=== PATIENT | female | born 1985 ===

== ENCOUNTER 2024-02-04 17:11 | Inpatient (IN) | payer MEDICAID, SELFPAY ==
[2024-02-04 17:46] VITALS: BMI 23.7
[2024-02-04 17:47] VITALS: BP 144/92; PULSE 80; RESP 14; TEMP 36.7; O2SAT 98
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
[2024-02-04 20:04] VITALS: BP 136/78; PULSE 84; RESP 16; TEMP 36.8; O2SAT 98
--- NOTE | 2024-02-04 20:34 | HO.PM.IMCN ---
History of Present Illness Data of Consult Service Date: 02/04/24 Primary Care Provider: Unknown Physician HPI Reason for consult: Admision H&P Pt is a 38-year-old female with a PMH significant for?ADHD, psoriasis, and depression with SI who is admitted to [facility] psychiatry unit for increasing depression with suicide attempt at overdosing on home medications. Patient apparently had taken 30 tablets of 50 mg hydroxyzine, 40-50 tablets of 25 mg Unisom, and a few mouthfuls of liquid Mucinex. Patient apparently had been triggered after an argument with her boss the day prior. Patient was treated at [facility] for possible overdose where she was monitored and electrolytes corrected. Medical consult for admission H&P. ?Patient states has not had psoriasis outbreak in many years, not currently. on any medications last saw PCP over 5 years ago before the pandemic. Currently complains of a ?tiny? headache, but otherwise has no acute medical complaints. No fever, chills, nausea, vomiting. Denies chest pain/pressure or palpitations. No shortness a breath or difficulty breathing. Denies acute vision changes. Last labs from [facility] reviewed, grossly unremarkable. Vital signs stable. Review of Systems Review of Systems: Slight headache Patient otherwise has no acute medical complaints at this time [facility] Social History Household Members: Friend(s) Housing: House Do you presently have visiting nurse or other home services: No Patient Tobacco Use Status: Current someday Tobacco user Tobacco use type: Cigarette e-Cigarette/Vaping Use: Currently Using Substance Use Type: Marijuana Meds Allergies Allergy/AdvReac Type Severity Reaction Status Date / Time No Known Drug Allergies Allergy Unknown Verified 02/04/24 19:26 Active Medications: Current Medications Acetaminophen (Acetaminophen 325 Mg Tablet) 650 mg PO Q6H PRN PRN Reason: Headache/Pain Mild Scale (1-3) Al Hydroxide/Mg Hydroxide (Magnesium Hydrox/Alum Hydrox 30 Ml Oral.Susp) 30 ml PO Q6H PRN PRN Reason: Heartburn/Nausea Diphenhydramine HCl (Diphenhydramine Hcl 25 Mg Capsule) 25 mg PO BEDTIME PRN PRN Reason: Sleep Hydroxyzine HCl (Hydroxyzine Hcl 25 Mg Tablet) 25 mg PO Q6H PRN PRN Reason: Anxiety Hydroxyzine HCl (Hydroxyzine Hcl 50 Mg Tablet) 50 mg PO BID PRN PRN Reason: Anxiety Magnesium Hydroxide (Milk Of Magnesia 30 Ml Oral.Susp) 30 ml PO DAILY PRN PRN Reason: Constipation Nicotine (Nicotine 21 Mg Patch.Td24) 21 mg TRANSDERMA DAILY PRN PRN Reason: smoking cessation Nicotine Polacrilex (Nicotine Polacrilex 2 Mg Gum) 4 mg BUCCAL Q2H PRN PRN Reason: Nicotine Cravings Olanzapine (Olanzapine 2.5 Mg Tablet) 2.5 mg PO TID PRN PRN Reason: agitation Sertraline HCl (Sertraline Hcl 50 Mg Tablet) 50 mg PO DAILY GRICELDA Trazodone HCl (Trazodone Hcl 50 Mg Tablet) 50 mg PO BEDTIME MRX1 PRN PRN Reason: Insomnia Home Medications ?Medication ?Instructions ?Recorded ?Confirmed ?Last Taken ?Type dextroamphetamine-amphetamine 10 10 mg PO BID PRN focus 02/04/24 02/04/24 02/01/24 History mg tablet (Adderall) diphenhydramine HCl 25 mg capsule 25 mg PO BEDTIME PRN Sleep 02/04/24 02/04/24 02/03/24 History (Unisom SleepMinis) hydroxyzine HCl 50 mg tablet 50 mg PO BID PRN Anxiety 02/04/24 02/04/24 02/03/24 History sertraline 50 mg tablet (Zoloft) 50 mg PO DAILY 02/04/24 02/04/24 02/03/24 History Physical Exam Vital Signs and Narrative: Vital Signs: Last Vital Signs Temp 98.2 F 02/04/24 20:04 Pulse 84 02/04/24 20:04 Resp 16 02/04/24 20:04 BP 136/78 02/04/24 20:04 Pulse Ox 98 02/04/24 20:04 O2 Del Method Room Air 02/04/24 20:04 BMI result Body Mass Index 23.7 General: AOx3, no acute distress Resp: CTA bilaterally CVS: S1, S2, RRR GI: +BS, NT, no distention Skin: Warm, dry Neuro: Cranial nerves II-XII grossly intact bilaterally. Motor grossly intact bilaterally Extremities: No edema Psych: Appropriate affect Assessment and Plan (1) Medical clearance for psychiatric admission: Status: Acute Plan Pt is a 38-year-old female with a PMH significant for?ADHD, psoriasis, and depression with SI who is admitted to psychiatry unit for increasing depression with suicide attempt at overdosing on home medications. Patient apparently had taken 30 tablets of 50 mg hydroxyzine, 40-50 tablets of 25 mg Unisom, and a few mouthfuls of liquid Mucinex. Patient apparently had been triggered after an argument with her boss the day prior. Patient was treated at [facility] for possible overdose where she was monitored and electrolytes corrected. Medical consult for admission H&P. Mood disorder Plan as per Psychiatry ADHD Continue Adderall Psoriasis Reports last outbreak many years ago Not on any home medications Patient otherwise has no known acute medical complaints or chronic medical conditions. Will sign off for now. Please re-consult if any acute issue or concern arises. Thank you for allowing us to participate in the care of this patient.
[2024-02-04] MEDS: hydrOXYzine HCL 50 MG TABLET PO (21:45)
[2024-02-04] MEDS: traZODone HCL 50 MG TABLET PO (21:45)
[2024-02-05 08:29] VITALS: BP 119/80; PULSE 89; RESP 18; TEMP 36.4; O2SAT 98
[2024-02-05] MEDS: Sertraline HCL 50 MG TABLET PO (08:44)
[2024-02-05 08:55] LABS: Estimated Average Glucose 114 mg/dL; Hemoglobin A1c % 5.6 % (<6.0)
[2024-02-05] MEDS: hydrOXYzine HCL 50 MG TABLET PO (09:05)
[2024-02-05] MEDS: OLANZapine 2.5 MG TABLET PO ×2 (09:05→14:49)
[2024-02-05 09:12] LABS: Alanine Aminotransferase 10 U/L (0-31); Albumin Level 4.3 g/dL (3.5-5.0); Alkaline Phosphatase 41 U/L (39-117); Anion Gap 10 (12-20); Aspartate Amino Transferase 13 U/L (5-31); Bilirubin Total 0.4 mg/dL (0.0-1.0); Blood Urea Nitrogen 8 mg/dL (9-16); Calcium 9.5 mg/dL (8.4-10.2); Carbon Dioxide 25 mmol/L (22-29); Chloride 106 mmol/L (96-108); Cholesterol 215 mg/dL (<200); Creatinine Clr Calc Pharmacy 88.3; Estimated Glomerular Filt Rate > 60; Glucose Fasting 115 mg/dL (60-99); HDL Cholesterol 57 mg/dL (>40); LDL Cholesterol Calculated 135 mg/dL (<100); Potassium 4.1 mmol/L (3.3-5.1); Sodium 137 mmol/L (135-145); Total Protein 6.9 g/dL (6.5-8.0); Triglycerides 116 mg/dL (<150)
[2024-02-05 09:26] LABS: TSH reflex Free T4 0.66 uIU/mL (0.32-4.0)
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
[2024-02-05] MEDS: hydrOXYzine HCL 25 MG TABLET PO (14:49)
[2024-02-05] MEDS: FLUoxetine HCl 10 MG CAPSULE PO (17:47)
[2024-02-05 20:00] VITALS: BP 157/86; PULSE 76; TEMP 36.6; O2SAT 99
[2024-02-05] MEDS: traZODone HCL 100 MG TABLET PO (20:16)
[2024-02-05] MEDS: diphenhydrAMINE HCL 25 MG CAPSULE PO (20:16)
[2024-02-05 20:17] VITALS: BP 157/86
[2024-02-05] MEDS: cloNIDine HCL 0.1 MG TABLET PO (20:17)
--- NOTE | 2024-02-06 | ECG_ITS ---
Test Reason : QTC CHECK Blood Pressure : / mmHG Vent. Rate : 063 BPM Atrial Rate : 063 BPM P-R Int : 142 ms QRS Dur : 082 ms QT Int : 430 ms P-R-T Axes : 026 035 034 degrees QTc Int : 440 ms Normal sinus rhythm Normal ECG No previous ECGs available Referred By: Stalin Collins Electronically Signed By:DEBRA CHAU
[2024-02-06 08:06] VITALS: BP 86/56; PULSE 70; RESP 16; TEMP 36.4; O2SAT 98
[2024-02-06 08:16] VITALS: BP 121/64; PULSE 70
[2024-02-06] MEDS: FLUoxetine HCl 10 MG CAPSULE PO (08:38)
[2024-02-06] MEDS: cloNIDine HCL 0.1 MG TABLET PO ×4 (08:48→20:19)
--- NOTE | 2024-02-06 09:27 | PC.NURSE ---
Pt signed a 3day notice Tuesday02/06/24, up on 02/06/24. Team notified during report.
[2024-02-06] MEDS: Acetaminophen 325 MG TABLET 650 MG PO (11:02)
[2024-02-06 12:53] VITALS: BP 120/82
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
[2024-02-06] MEDS: Nicotine Polacrilex 2 MG GUM 4 MG BUCCAL (13:25)
[2024-02-06 16:53] VITALS: BP 105/62
[2024-02-06 20:00] VITALS: BP 114/72; PULSE 75; RESP 16; TEMP 35.8; O2SAT 95
[2024-02-06 20:19] VITALS: BP 144/87
[2024-02-06] MEDS: traZODone HCL 100 MG TABLET PO (20:21)
[2024-02-06] MEDS: diphenhydrAMINE HCL 25 MG CAPSULE PO (20:21)
[2024-02-07] MEDS: hydrOXYzine HCL 50 MG TABLET PO ×2 (07:59→22:17)
[2024-02-07] MEDS: FLUoxetine HCl 10 MG CAPSULE PO (08:00)
[2024-02-07 09:04] VITALS: BP 97/51; PULSE 69; RESP 18; TEMP 36.3; O2SAT 100
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
[2024-02-07] MEDS: Amphetamine Mixed Salts 10 MG TABLET 5 MG PO ×2 (12:42→15:53)
[2024-02-07] MEDS: Nicotine Polacrilex 2 MG GUM 4 MG BUCCAL (17:04)
[2024-02-07 21:00] VITALS: BP 127/67; PULSE 78; RESP 16; TEMP 37.3; O2SAT 98
[2024-02-07] MEDS: traZODone HCL 100 MG TABLET PO ×2 (21:11→22:17)
[2024-02-07] MEDS: cloNIDine HCL 0.1 MG TABLET PO (21:11)
[2024-02-08 08:00] VITALS: BP 115/65; PULSE 72; RESP 18; TEMP 35.9; O2SAT 99
[2024-02-08] MEDS: FLUoxetine HCl 10 MG CAPSULE PO (08:39)
[2024-02-08] MEDS: Dextroamphetamine/Amphetamine XR 10 MG CAP.ER.24H PO (08:39)
[2024-02-08] MEDS: Acetaminophen 325 MG TABLET 650 MG PO (12:19)
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
[2024-02-08] MEDS: Ondansetron ODT 4 MG TAB.RAPDIS TRANSLINGU (14:26)
[2024-02-08 17:28] VITALS: BP 122/79
[2024-02-08] MEDS: hydrOXYzine HCL 25 MG TABLET PO (17:28)
[2024-02-08] MEDS: cloNIDine HCL 0.1 MG TABLET PO (17:28)
[2024-02-08 20:00] VITALS: BP 113/77; PULSE 72; TEMP 36.8; O2SAT 99
[2024-02-08] MEDS: diphenhydrAMINE HCL 25 MG CAPSULE PO (20:25)
[2024-02-08] MEDS: traZODone HCL 100 MG TABLET PO (20:25)
[2024-02-09 08:04] VITALS: BP 115/68; PULSE 74; RESP 16; TEMP 36.3; O2SAT 100
[2024-02-09] MEDS: Dextroamphetamine/Amphetamine XR 10 MG CAP.ER.24H PO (08:22)
[2024-02-09] MEDS: FLUoxetine HCl 10 MG CAPSULE PO (08:22)
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
== END 2024-02-09 11:36 | disposition home or self-care (01) | DRG 751 ==
PROVIDERS: Admitting Provider Psychiatry & Neurology Psychiatry; Visit Provider Psychiatry & Neurology Psychiatry
DX: F33.2 Major depressive disorder, recurrent severe without psychotic features (principal); R45.851 Suicidal ideations; F32.81 Premenstrual dysphoric disorder; F10.21 Alcohol dependence, in remission; F17.210 Nicotine dependence, cigarettes, uncomplicated; F43.10 Post-traumatic stress disorder, unspecified; F90.9 Attention-deficit hyperactivity disorder, unspecified type; L40.9 Psoriasis, unspecified; Z62.812 Personal history of neglect in childhood; Z71.6 Tobacco abuse counseling; Z79.899 Other long term (current) drug therapy
CPT/HCPCS: 36415; 80053; 80061; 83036; 84443; 93005

== ENCOUNTER → 2024-02-04 17:11 | Outpatient (BNV) | payer MEDICAID, SELFPAY | PROVIDERS: Admitting Provider Psychiatry & Neurology Psychiatry; Visit Provider Student in an Organized Health Care Education/Training Program | DX: Z00.8 Encounter for other general examination (principal) | CPT/HCPCS: 99222 ==

== ENCOUNTER → 2024-02-04 17:11 | Outpatient (BNV) | payer MEDICAID, SELFPAY | PROVIDERS: Admitting Provider Psychiatry & Neurology Psychiatry; Visit Provider Psychiatry & Neurology Psychiatry | DX: F33.1 Major depressive disorder, recurrent, moderate (principal); F43.11 Post-traumatic stress disorder, acute; F90.9 Attention-deficit hyperactivity disorder, unspecified type | CPT/HCPCS: 99231; 99232 ==